=== PATIENT | male | born 1955 | race Caucasian/White ===

== ENCOUNTER 2020-03-08 13:56 | Emergency (ER) | payer BC ==
[~2020-03-08] VITALS: Ht 175.3 cm; Wt 99.8 kg
[~2020-03-08 13:56] MED LIST: AMBIEN 10 MG TA10 MG PO; MECLIZINE 25 MG25 M1 PO; NABUMETONE 500500 M1 PO
[2020-03-08] MEDS ORDERED: VIMOVO 500-201 EACH PO (14:14)
[2020-03-08] MEDS ORDERED: NORCO 5-325 TA1 EAC2 PO (14:51)
[2020-03-08 14:59] VITALS: BP 125/70
== END 2020-03-08 14:59 | disposition home or self-care (01) ==
LOC: M.ERS 13:56
DX: S46.811A Strain of other muscles, fascia and tendons at shoulder and upper arm level, right arm, initial encounter (principal); M19.90 Unspecified osteoarthritis, unspecified site; N40.0 Benign prostatic hyperplasia without lower urinary tract symptoms; Z90.49 Acquired absence of other specified parts of digestive tract; Z87.442 Personal history of urinary calculi; Z86.19 Personal history of other infectious and parasitic diseases; Z88.5 Allergy status to narcotic agent; X50.9XXA Other and unspecified overexertion or strenuous movements or postures, initial encounter; Y93.89 Activity, other specified; Y92.89 Other specified places as the place of occurrence of the external cause; Y99.8 Other external cause status